=== PATIENT | male | born 1965 | race Caucasian/White ===

== ENCOUNTER → 2017-11-21 | Outpatient (CLI) | payer BC ==
[~2017-11-21] VITALS: Ht 182.9 cm; Wt 90.7 kg
[~2017-11-21] MED LIST: LISI-556 PO; PROP60TA17 PO
== END | disposition home or self-care (01) ==
LOC: PREOP 05:37
PROVIDERS: ATTEND Surgery
DX: Z01.818 Encounter for other preprocedural examination (principal)

== ENCOUNTER 2017-11-28 09:31 | Day surgery (SDC) | payer BC ==
[~2017-11-28] VITALS: Ht 182.9 cm; Wt 90.7 kg
[2017-11-28] MEDS ORDERED: NS IV 500 ML 500 ML IV PRN (09:38)
[2017-11-28] MEDS ORDERED: NS IV 500 ML 500 ML ONE (09:43)
[2017-11-28 09:53] VITALS: BP 135/85
--- NOTE | 2017-11-28 10:02 | History & Physicial ---
History of Present Illness History of Present Illness Reason for visit/HPI to undergo screening colonoscopy Date of Admission 11/28/17 Date Seen by Provider: Nov 28, 2017 Time Seen by Provider: 10:01 I consulted on this patient on 11/28/17 10:01 Attending Physician Alon Goddard MD Admitting Physician Curry Lucero MD Consult Allergies and Home Medications Allergies Coded Allergies: No Known Drug Allergies (Unverified , 11/21/17) Home Medications Lisinopril 5 Mg Tablet, 5 MG PO DAILY, (Reported) Propranolol HCl 60 Mg Tablet, 60 MG PO DAILY, (Reported) Patient Home Medication List Home Medication List Reviewed: Yes Past Ivhfwcl-Nyamqk-Ishqsp Hx Patient Social History Marrital Status: Employed/Student: employed Alcohol Use: Occasionally Uses Recreational Drug Use: No Smoking Status: Never a Smoker Recent Foreign Travel: No Contact w/other who traveled: No Recent Hopitalizations: No Recent Infectious Disease Expo: No Seasonal Allergies Seasonal Allergies: No Surgeries Vasectomy Cardiovascular Yes Hypertension Reproductive System Hx Reproductive Disorders: No Sexually Transmitted Disease: No HIV/AIDS: No Musculoskeletal Degenerate Disk Disease, Arthritis, Chronic Back Pain HEENT Loss of Vision: Bilateral Hearing Impairment: Denies Blood Transfusions Adverse Reaction to a Blood Tr: No (N/A) Constitutional: no symptoms reported EENTM: no symptoms reported Respiratory: no symptoms reported Cardiovascular: no symptoms reported Gastrointestinal: no symptoms reported Genitourinary: no symptoms reported Musculoskeletal: no symptoms reported Skin: no symptoms reported Psychiatric/Neurological: No Symptoms Reported Physical Exam Vital Signs Vital Signs - First Documented 11/28/17 09:53 Temp 99.6 Pulse 60 Resp 16 B/P (MAP) 135/85 (102) Pulse Ox 93 O2 Delivery Room Air Capillary Refill : Height, Weight, BMI Height: 6'0.00" Weight: 200lbs. 0.0oz. 90.843813qa; 27.1 BMI Method: General Appearance: No Apparent Distress Neck: Normal Inspection Respiratory: Lungs Clear Cardiovascular: Regular Rate, Rhythm Gastrointestinal: Non Tender, Soft Rectal: Deferred Neurologic/Psychiatric: Alert, Oriented x3 Skin: Warm/Dry Assessment/Plan Assessment and Plan gentleman to undergo screening colonoscopy. Discussed in detail. Admission Diagnosis Admission Status: Other (Outpt Proc) ALON GODDARD MD Nov 28, 2017 10:02 am
--- NOTE | 2017-11-28 10:02 | Conscious Sedation/ASA ---
Conscious Sedation Pre-Proced Time Reviewed: 10:02 ASA Class: 2 Airway Mallampati Classification: (redding appropriate class) I. II. III, IV Lungs Heart ASA score ASA 1: a normal healthy patient ASA 2: a patient with a mild systemic disease (mid diabetes, controlled hypertension, obesity ASA 3: a patient with a severe systemic disease that limits activity (angina , COPD, prior Myocardial infarction) ASA 4: a patient with an incapacitating disease that is a constant threat to life (CHF, renal failure) ASA 5: a moribund patient not expected to survive 24 hrs. (ruptured aneurysm) ASA 6: a declared brain patient whose organs are being harvested. For emergent operations, add the letter E after the classification Grade 1 Sedation Plan: Discussed options with patient/fam Note The patient is an appropriate candidate to undergo the planned procedure, sedation, and anesthesia. The patient immediately re-assessed prior to indication. ALON GODDARD MD Nov 28, 2017 10:02 am
[2017-11-28] MEDS ORDERED: fentaNYL INJECTION 100 MCG/2 ML AMP ONE ×2 (10:40)
[2017-11-28] MEDS ORDERED: MIDAZOLAM 2 MG/2 ML (VERSED) VIAL ONE ×3 (10:40→10:41)
[2017-11-28] MEDS: fentaNYL INJECTION 100 MCG/2 ML AMP IVP PRN ×3 (10:45→10:55)
[2017-11-28] MEDS: MIDAZOLAM 2 MG/2 ML (VERSED) VIAL IVP PRN ×3 (10:48→10:54)
--- NOTE | 2017-11-28 11:11 | Endo Procedure Record ---
Endo Procedure Report Date of Procedure Last Colonoscopy: No Nov 28, 2017 Surgeon (s) ALON GODDARD MD Post Procedure/Op Diagnosis Sigmoid diverticulosis Procedure Performed Colonoscopy to cecum Description of Procedure Anesthesia Type: Conscious Sedation Specimen(s) collected/removed None Description of the Procedure Indication for the procedure: This gentleman came in for screening colonoscopy. He denies any relevant family history. Informed consent was obtained after reviewing the procedure in detail. Description of the procedure: He was placed in left lateral decubitus position and his vital signs were monitored. Conscious sedation was achieved using Versed and fentanyl. Digital rectal examination was unremarkable. The colonoscope was then introduced into the rectum and advanced all the way up to the cecum. The scope was then withdrawn slowly and the mucosa examined in a systematic fashion. Finding: Sigmoid diverticulosis. He tolerated the procedure well and was taken back to the nursing area in a stable condition. Impression: Screening colonoscopy. No polyps. No family history. Recommend repeat in 10 years. Copy Copies To 1: TC AUSTIN MD, XAVIER M MD Nov 28, 2017 11:11 am
--- NOTE | 2017-11-28 11:12 | Discharge Inst-Simple/Standard ---
Discharge Inst-Standard Discharge Medications New, Converted or Re-Newed RX: Other Patient Instructions/Follow Up Plan of Care/Instructions/FU: Repeat colonoscopy in 10 years Activity as Tolerated: Yes Discharge Diet: No Restrictions ALON GODDARD MD Nov 28, 2017 11:12 am
[2017-11-28 11:45] VITALS: BP 117/74
[2017-11-28 12:05] VITALS: BP 125/69
[2017-11-28 12:10] VITALS: BP 125/69
== END 2017-11-28 12:10 | disposition home or self-care (01) ==
LOC: ENDO 09:31
PROVIDERS: ATTEND Surgery
DX: Z12.11 Encounter for screening for malignant neoplasm of colon (principal); K57.30 Diverticulosis of large intestine without perforation or abscess without bleeding; I10 Essential (primary) hypertension; Z79.899 Other long term (current) drug therapy

== ENCOUNTER 2018-04-20 10:59 | Emergency (ER) | payer BC ==
[~2018-04-20] VITALS: Ht 182.9 cm; Wt 90.7 kg
[2018-04-20] MEDS ORDERED: HYDR-4226 PO (11:40)
--- NOTE | 2018-04-20 11:40 | ED Lower Extremity ---
General Chief Complaint: Lower Extremity Stated Complaint: GROIN PAIN,DIZZINESS Source: patient Exam Limitations: no limitations History of Present Illness Date Seen by Provider: Apr 20, 2018 Time Seen by Provider: 11:35 Initial Comments To ER with reports of right groin pain. He's been having some right groin pain for about a month. He saw Dr. Austin his primary care provider who told him this was likely a muscle strain but could represent a hernia though that was unlikely. Patient denies any bulging in the scrotum. Denies any bowel changes. Today, while playing volleyball he dove for a ball and felt a pop in the right proximal medial right thigh. He's having significant pain with this. He does have a history of right hip replacement. 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 Onset: just prior to arrival Severity: moderate Pain/Injury Location: right leg Method of Injury: sports injury Modifying Factors: Worse With Movement Allergies and Home Medications Allergies Coded Allergies: No Known Drug Allergies (Verified , 11/28/17) Home Medications Hydrocodone/Acetaminophen 1 Each Tablet, 1 EACH PO Q6H PRN for PAIN-MODERATE Prescribed by: ROBBI ISABEL on 04/20/18 1140 Lisinopril 5 Mg Tablet, 5 MG PO DAILY, (Reported) Methylprednisolone 4 Mg Tab.ds.pk, 4 MG PO UD PER DOSE PACK INSTRUCTIONS Prescribed by: ROBBI ISABEL on 04/20/18 1228 Propranolol HCl 60 Mg Tablet, 60 MG PO DAILY, (Reported) Patient Home Medication List Home Medication List Reviewed: Yes Review of Systems Constitutional: see HPI EENTM: see HPI Respiratory: no symptoms reported Cardiovascular: no symptoms reported Genitourinary: no symptoms reported Musculoskeletal: see HPI Skin: no symptoms reported Psychiatric/Neurological: No Symptoms Reported Past Aqpvpsz-Lagfgr-Jsyoax Hx Patient Social History Recent Foreign Travel: No Contact w/Someone Who Travel: No Recent Hopitalizations: No Seasonal Allergies Seasonal Allergies: No Past Medical History Vasectomy Cardiac: Yes Hypertension Reproductive Disorders: No Sexually Transmitted Disease: No HIV/AIDS: No Degenerate Disk Disease, Arthritis, Chronic Back Pain Loss of Vision: Bilateral Hearing Impairment: Denies Adverse Reaction/Blood Tranf: No (N/A) Physical Exam Vital Signs Capillary Refill : Height, Weight, BMI Height: 6'0.00" Weight: 200lbs. 0.0oz. 90.006197nd; 27.1 BMI Method: General Appearance: WD/WN, no apparent distress HEENT: PERRL/EOMI, normal ENT inspection Neck: non-tender, full range of motion Respiratory: no respiratory distress, no accessory muscle use Gastrointestinal: normal bowel sounds, non tender, soft Hips: bilateral hip non-tender, bilateral hip normal inspection, bilateral hip normal range of motion Legs: bilateral leg non-tender, bilateral leg normal inspection, bilateral leg normal range of motion Knees: bilateral knee non-tender, bilateral knee normal inspection, bilateral knee normal range of motion Ankles: bilateral ankle non-tender, bilateral ankle normal inspection, bilateral ankle normal range of motion Neurologic/Psychiatric: alert, normal mood/affect, oriented x 3 Skin: normal color, warm/dry Abdomen is flat soft and nontender. There is no bulging in the scrotum to suggest inguinal hernia. His pain is to the medial right thigh. Progress/Results/Core Measures Results/Orders My Orders Orders - ROBBI ISABEL APRN Ct Abdomen/Pelvis Wo (04/20/18 11:35) Hydrocodone/Apap 5/325 Tablet (Lortab 5 (04/20/18 11:45) Medications Given in ED Current Medications Medications Dose Ordered Sig/Neeru Route Start Time Stop Time Status Last Admin Dose Admin Acetaminophen/ Hydrocodone Bitart 1 tab ONCE ONCE PO 04/20/18 11:45 04/20/18 11:46 DC 04/20/18 12:11 1 TAB Diagnostic Imaging Diagonstic Imaging: CT Comments NAME: COURTNEY LEE [facility] REC#: [id number] PT STATUS: REG ER : 1965 PHYSICIAN: ROBBI ISABEL APRN ADMIT DATE: 04/20/18/ER Draft Date of Exam:04/20/18 CT ABDOMEN/PELVIS WO PROCEDURE: CT abdomen and pelvis without contrast. TECHNIQUE: Multiple contiguous axial images were obtained through the abdomen and pelvis without the use of intravenous contrast. INDICATION: Injury with groin pain and dizziness. No prior studies are available for comparison. FINDINGS: The lung bases are clear. Liver and gallbladder are unremarkable. The pancreas and spleen are unremarkable. No adrenal mass is identified. Kidneys are without calculi or hydronephrosis. The aorta is non-aneurysmal. Small and large bowel loops are normal caliber. There is mild diverticulosis of the sigmoid but no evidence of acute diverticulitis. Bladder is unremarkable. There is moderate streak artifact through the pelvis from patient's right hip prosthesis. Bony structures are nonacute. There is no free fluid identified. There is a small fat-containing umbilical hernia. IMPRESSION: Unremarkable noncontrast CT of the abdomen and pelvis apart from uncomplicated diverticulosis. No acute abnormality is identified. Dictated on workstation # [id number] Dict: 04/20/18 1214 Trans: 04/20/18 1222 [id number] Interpreted by: MAXIMILIANO DENSON MD Electronically signed by: Departure Impression Primary Impression: Strain of hip adductor muscle Qualified Codes: S76.011A - Strain of muscle, fascia and tendon of right hip, initial encounter Additional Impression: Adductor tendinitis of hip Disposition: HOME, SELF-CARE Condition: Stable Departure-Patient Inst. Decision time for Depature: 11:39 Referrals: TC AUSTIN MD (PCP/Family) Primary Care Physician Patient Instructions: Lower Extremity Muscle Strain Add. Discharge Instructions: 1. Ice to this area 2. Pain medication as as directed. 3. Follow-up with Dr. Austin next week All discharge instructions reviewed with patient and/or family. Voiced understanding. Scripts Methylprednisolone (Medrol) 4 Mg Tab.ds.pk 4 MG PO UD for 6 Days, #21 PKG PER DOSE PACK INSTRUCTIONS Prov: ROBBI ISABEL APRN 04/20/18 Hydrocodone/Acetaminophen (Allen 5-325 Tablet) 1 Each Tablet 1 EACH PO Q6H PRN for PAIN-MODERATE MDD 10, #10 TAB Prov: ROBBI ISABEL APRN 04/20/18 Work/School Note: Work Release Form Date Seen in the Emergency Department: Apr 20, 2018 Return to Work: Apr 22, 2018 Images Torso/Trunk 1 - Tenderness Copy Copies To 1: TC AUSTIN MD, PETER J APRN Apr 20, 2018 11:40
[2018-04-20] MEDS: HYDROcodone/APAP 5 MG/325 MG (LORTAB) TAB PO ONE (12:11)
--- NOTE | 2018-04-20 12:22 | Diagnostic Imaging Report ---
PROCEDURE: CT abdomen and pelvis without contrast. TECHNIQUE: Multiple contiguous axial images were obtained through the abdomen and pelvis without the use of intravenous contrast. INDICATION: Injury with groin pain and dizziness. No prior studies are available for comparison. FINDINGS: The lung bases are clear. Liver and gallbladder are unremarkable. The pancreas and spleen are unremarkable. No adrenal mass is identified. Kidneys are without calculi or hydronephrosis. The aorta is non-aneurysmal. Small and large bowel loops are normal caliber. There is mild diverticulosis of the sigmoid but no evidence of acute diverticulitis. Bladder is unremarkable. There is moderate streak artifact through the pelvis from patient's right hip prosthesis. Bony structures are nonacute. There is no free fluid identified. There is a small fat-containing umbilical hernia. IMPRESSION: Unremarkable noncontrast CT of the abdomen and pelvis apart from uncomplicated diverticulosis. No acute abnormality is identified. Dictated by: Dictated on workstation # [id number]
[2018-04-20] MEDS ORDERED: METH4TAB PO (12:28)
[2018-04-20 12:40] VITALS: BP 126/76
== END 2018-04-20 12:40 | disposition home or self-care (01) ==
LOC: EDUNIT# 10:59 → ER 11:01
DX: S76.011A Strain of muscle, fascia and tendon of right hip, initial encounter (principal); M76.01 Gluteal tendinitis, right hip; I10 Essential (primary) hypertension; Z96.641 Presence of right artificial hip joint; X50.1XXA Overexertion from prolonged static or awkward postures, initial encounter; Y93.68 Activity, volleyball (beach) (court)
CPT/HCPCS: 74176

== ENCOUNTER 2019-05-04 16:24 | Emergency (ER) | payer BC ==
[~2019-05-04] VITALS: Ht 180 cm; Wt 91.5 kg
[~2019-05-04 16:24] MED LIST changes: +HYDR-4226 PO; +METH4TAB PO
[2019-05-04] MEDS ORDERED: TADA5TAB13 (16:34)
[2019-05-04] MEDS ORDERED: NS IV 1000 ML 1,000 ML ONE (16:54)
[2019-05-04] MEDS ORDERED: cloNIDine 0.1 MG (CATAPRES) TAB ONE (16:54)
[2019-05-04] MEDS ORDERED: cloNIDine 0.1 MG (CATAPRES) TAB PO ONE (17:15)
[2019-05-04] MEDS ORDERED: cloNIDine 0.2 MG (CATAPRES) TAB PO ONE (17:15)
[2019-05-04 17:19] LABS: BASOPHILS % (AUTO) 0 % (0-10); EOSINOPHILS # (AUTO) 0.1 10^3/uL (0.0-0.3); EOSINOPHILS % (AUTO) 2 % (0-10); HEMATOCRIT 43 % (40-54); HEMOGLOBIN 14.7 G/DL (13.3-17.7); LYMPHOCYTES # (AUTO) 1.2 X 10^3 (1.0-4.0); LYMPHOCYTES % (AUTO) 23 % (12-44); MEAN CORPUSCULAR HEMOGLOBIN 31 PG (25-34); MEAN CORPUSCULAR HGB CONC 34 G/DL (32-36); MEAN CORPUSCULAR VOLUME 92 FL (80-99); MEAN PLATELET VOLUME 9.6 FL (7.4-10.4); MONOCYTES # (AUTO) 0.5 X 10^3 (0.0-1.0); MONOCYTES % (AUTO) 10 % (0-12); NEUTROPHILS # (AUTO) 3.4 X 10^3 (1.8-7.8); NEUTROPHILS % (AUTO) 66 % (42-75); PLATELET COUNT 240 10^3/uL (130-400); RED CELL DISTRIBUTION WIDTH 12.4 % (10.0-14.5); WHITE BLOOD COUNT 5.1 10^3/uL (4.3-11.0)
--- NOTE | 2019-05-04 17:19 | ED General ---
General Chief Complaint: Cardiac/General Problems Stated Complaint: HIGH BP Nursing Triage Note: WENT TO THE CLINIC TODAY DUE TO TUNNEL VISION AND BEING LIGHT HEADED. SENT OVER FROM THERE FOR HYPERTENSION. STATES HE IS NO LONGER HAVING THE TUNNEL VISION ET JUST FEELS "WEIRD" Nursing Sepsis Screen: No Definite Risk Source of Information: Patient, Family, Other (urgent care) Exam Limitations: No Limitations History of Present Illness Date Seen by Provider: May 04, 2019 Time Seen by Provider: 17:15 Initial Comments This 53-year-old white male presents after a near syncopal episode today with a history of having elevated blood pressure at urgent care. The patient denied headache photophobia or stiff neck, chest pain palpitations or diaphoresis, shortness of breath, nausea vomiting or diarrhea, or change in medication. 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 The patient stated that he had a regular cold drink last night. He has been under some stress from his mother one year ago and his father having been recently hospitalized. Allergies and Home Medications Allergies Coded Allergies: No Known Drug Allergies (Verified , 11/28/17) Home Medications Lisinopril 5 Mg Tablet, 5 MG PO DAILY, (Reported) Propranolol HCl 60 Mg Tablet, 60 MG PO DAILY, (Reported) Patient Home Medication List Home Medication List Reviewed: Yes Review of Systems Review of Systems Constitutional: malaise Respiratory: No cough Cardiovascular: No chest pain, No palpitations Gastrointestinal: No abdominal pain, No diarrhea, No nausea, No vomiting Genitourinary: no symptoms reported Musculoskeletal: no symptoms reported Skin: no symptoms reported Psychiatric/Neurological: No Symptoms Reported Hematologic/Lymphatic: No Symptoms Reported Immunological/Allergic: no symptoms reported Past Ogmubul-Gwpbqa-Ggdwhv Hx Past Med/Social Hx: Reviewed Nursing Past Med/Soc Hx Patient Social History Alcohol Use: Regular Use Alcohol Beverage of Choice: Whiskey Recreational Drug Use: No Smoking Status: Current Someday Smoker Type Used: Cigars 2nd Hand Smoke Exposure: No Recent Foreign Travel: No Contact w/Someone Who Travel: No Recent Infectious Disease Expo: No Recent Hopitalizations: No Seasonal Allergies Seasonal Allergies: No Past Medical History Surgeries: Yes (R THR, KNEE SCOPE, RT HIP REPLACEMENT ) Vasectomy Respiratory: No Cardiac: Yes Hypertension Neurological: No (TREMORS) Reproductive Disorders: No Sexually Transmitted Disease: No HIV/AIDS: No Gastrointestinal: No Musculoskeletal: Yes Degenerate Disk Disease, Arthritis, Chronic Back Pain Endocrine: No Loss of Vision: Bilateral Hearing Impairment: Denies Cancer: No Psychosocial: No Integumentary: No Blood Disorders: No Adverse Reaction/Blood Tranf: No (N/A) Physical Exam Vital Signs Vital Signs - First Documented 05/04/19 16:29 Temp 37.0 Pulse 67 Resp 16 B/P (MAP) 206/130 (155) Pulse Ox 98 O2 Delivery Room Air Capillary Refill : Less Than 3 Seconds Height, Weight, BMI Height: 6'0" Weight: 200lbs. 0.0oz. 90.196731va; 28.00 BMI Method:Stated General Appearance: No Apparent Distress, WD/WN Eyes: Bilateral Eye Normal Inspection HEENT: Normal ENT Inspection Neck: Normal Inspection Respiratory: Lungs Clear Cardiovascular: Regular Rate, Rhythm Gastrointestinal: Normal Bowel Sounds, Non Tender, Soft Back: Normal Inspection Extremity: Normal Inspection Neurologic/Psychiatric: Alert, Oriented x3, No Motor/Sensory Deficits Skin: Normal Color, Warm/Dry Progress/Results/Core Measures Suspected Sepsis Recent Fever Within 48 Hours: No Infection Criteria Present: None New/Unexplained Altered Menta: No Sepsis Screen: No Definite Risk SIRS Temperature: Pulse: 67 Respiratory Rate: 16 Laboratory Tests 05/04/19 16:55: White Blood Count 5.1 Blood Pressure 206 /130 Mean: 155 Laboratory Tests 05/04/19 16:55: Creatinine 1.00, Platelet Count 240, Total Bilirubin 0.4 Results/Orders Lab Results Laboratory Tests Test 05/04/19 16:55 Range/Units White Blood Count 5.1 4.3-11.0 10^3/uL Red Blood Count 4.69 4.35-5.85 10^6/uL Hemoglobin 14.7 13.3-17.7 G/DL Hematocrit 43 40-54 % Mean Corpuscular Volume 92 80-99 FL Mean Corpuscular Hemoglobin 31 25-34 PG Mean Corpuscular Hemoglobin Concent 34 32-36 G/DL Red Cell Distribution Width 12.4 10.0-14.5 % Platelet Count 240 130-400 10^3/uL Mean Platelet Volume 9.6 7.4-10.4 FL Neutrophils (%) (Auto) 66 42-75 % Lymphocytes (%) (Auto) 23 12-44 % Monocytes (%) (Auto) 10 0-12 % Eosinophils (%) (Auto) 2 0-10 % Basophils (%) (Auto) 0 0-10 % Neutrophils # (Auto) 3.4 1.8-7.8 X 10^3 Lymphocytes # (Auto) 1.2 1.0-4.0 X 10^3 Monocytes # (Auto) 0.5 0.0-1.0 X 10^3 Eosinophils # (Auto) 0.1 0.0-0.3 10^3/uL Basophils # (Auto) 0.0 0.0-0.1 10^3/uL Sodium Level 142 135-145 MMOL/L Potassium Level 4.2 3.6-5.0 MMOL/L Chloride Level 108 H 98-107 MMOL/L Carbon Dioxide Level 23 21-32 MMOL/L Anion Gap 11 5-14 MMOL/L Blood Urea Nitrogen 21 H 7-18 MG/DL Creatinine 1.00 0.60-1.30 MG/DL Estimat Glomerular Filtration Rate > 60 BUN/Creatinine Ratio 21 Glucose Level 101 70-105 MG/DL Calcium Level 9.2 8.5-10.1 MG/DL Corrected Calcium 9.0 8.5-10.1 MG/DL Magnesium Level 2.0 1.6-2.4 MG/DL Total Bilirubin 0.4 0.1-1.0 MG/DL Aspartate Amino Transf (AST/SGOT) 31 5-34 U/L Alanine Aminotransferase (ALT/SGPT) 33 0-55 U/L Alkaline Phosphatase 62 40-136 U/L Total Protein 7.2 6.4-8.2 GM/DL Albumin 4.2 3.2-4.5 GM/DL My Orders Orders - MARZENA GONZALEZ MD Ns Iv 1000 Ml (Sodium Chloride 0.9%) (05/04/19 16:54) Clonidine Tablet (Catapres Tablet) (05/04/19 16:54) Clonidine Tablet (Catapres Tablet) (05/04/19 17:15) Clonidine Tablet (Catapres Tablet) (05/04/19 17:15) Cbc With Automated Diff (05/04/19 17:12) Magnesium (05/04/19 17:12) Chest 1 View, Ap/Pa Only (05/04/19 17:12) Ekg Tracing (05/04/19 17:12) Comprehensive Metabolic Panel (05/04/19 17:12) Myoglobin Serum (05/04/19 17:12) Protime With Inr (05/04/19 17:12) Partial Thromboplastin Time (05/04/19 17:12) O2 (05/04/19 17:12) Monitor-Rhythm Ecg Trace Only (05/04/19 17:12) Lipid Panel (05/05/19 06:00) Ed Iv/Invasive Line Start (05/04/19 17:12) Troponin I (05/04/19 17:12) Hemoglobin A1c (05/04/19 17:12) Lorazepam Injection (Ativan Injection) (05/04/19 17:30) Medications Given in ED Current Medications Medications Dose Ordered Sig/Neeru Route Start Time Stop Time Status Last Admin Dose Admin Clonidine HCl 0.1 mg ONCE ONCE PO 05/04/19 17:15 05/04/19 17:16 DC 05/04/19 17:27 0.1 MG Clonidine HCl 0.2 mg ONCE ONCE PO 05/04/19 17:15 05/04/19 17:16 DC 05/04/19 17:26 0.2 MG Lorazepam 1 mg ONCE ONCE IVP 05/04/19 17:30 05/04/19 17:31 DC 05/04/19 17:26 1 MG Sodium Chloride 1,000 ml @ ud STK-MED ONCE .ROUTE 05/04/19 16:54 05/04/19 16:57 DC 05/04/19 17:27 1,000 MLS/HR Vital Signs/I&O 05/04/19 16:29 Temp 37.0 Pulse 67 Resp 16 B/P (MAP) 206/130 (155) Pulse Ox 98 O2 Delivery Room Air Capillary Refill : Less Than 3 Seconds Blood Pressure Mean: 155 Progress Note : Time: 17:40 Progress Note Patient's EKG demonstrated sinus rhythm no acute cranial injury was noted. Patient's blood pressure was controlled with clonidine. Patient received a total of 0.3 mg orally. Patient also received a milligram of Ativan IV. Time of discharge patient's blood pressure was normalized. He was asked Lionel to assume his normal antihypertensive therapy and follow-up closely with his doctor on Tuesday for further evaluation. He was invited return if any further problems or questions. Departure Impression Primary Impression: Elevated blood pressure reading Disposition: HOME, SELF-CARE Condition: Improved Departure-Patient Inst. Decision time for Depature: 17:42 Referrals: NO,LOCAL PHYSICIAN (PCP) Primary Care Physician Patient Instructions: Blood Pressure Testing and Measurement Add. Discharge Instructions: Resume your blood pressure medications. Follow-up with her doctor on Tuesday for further evaluation. Return of any problems or questions. All discharge instructions reviewed with patient and/or family. Voiced understanding. MARZENA GONZALEZ MD May 04, 2019 17:19
[2019-05-04] MEDS ORDERED: LORazepam INJ 2 MG/ML (ATIVAN) VIAL IVP ONE (17:30)
[2019-05-04 17:34] LABS: ALANINE AMINOTRANSFERASE 33 U/L (0-55); ALBUMIN 4.2 GM/DL (3.2-4.5); ALKALINE PHOSPHATASE 62 U/L (40-136); BILIRUBIN,TOTAL 0.4 MG/DL (0.1-1.0); BUN/CREATININE RATIO 21; CALCIUM 9.2 MG/DL (8.5-10.1); CARBON DIOXIDE 23 MMOL/L (21-32); CHLORIDE 108 MMOL/L (98-107); GFR ESTIMATED > 60; GLUCOSE 101 MG/DL (70-105); POTASSIUM 4.2 MMOL/L (3.6-5.0); SODIUM 142 MMOL/L (135-145); TOTAL PROTEIN 7.2 GM/DL (6.4-8.2)
--- NOTE | 2019-05-04 17:55 | Diagnostic Imaging Report ---
INDICATION: Lightheadedness, hypertension, and headache. Upright portable AP view of chest is obtained. COMPARISON: No previous study is available for comparison at this time. FINDINGS: Heart size and pulmonary vasculature are within normal limits, and the lungs are clear, bilaterally. IMPRESSION: Unremarkable chest. Dictated by: Dictated on workstation # [id number]
[2019-05-04 17:58] VITALS: BP 157/103
[2019-05-04 18:20] LABS: INR 0.9 (0.8-1.4); PROTHROMBIN TIME PATIENT 12.7 SEC (12.2-14.7)
== END 2019-05-04 17:59 | disposition home or self-care (01) ==
LOC: EDUNIT# 16:24 → ER 16:25
DX: I10 Essential (primary) hypertension (principal); F17.290 Nicotine dependence, other tobacco product, uncomplicated; Z96.641 Presence of right artificial hip joint
CPT/HCPCS: 36415; 71045; 80053; 83036; 83735; 83874; 84484; 85025; 85610; 85730; 93005; 93041; 96361; 96374

== ENCOUNTER → 2022-03-16 | Outpatient (CLI) | payer BC ==
[~2022-03-16] MED LIST changes: -LISI-556 PO; +LISI5TAB20 PO; +TADA5TAB13
[2022-03-16 16:48] LABS: HEMATOCRIT 43 % (40-54); HEMOGLOBIN 14.5 g/dL (13.3-17.7); MEAN CORPUSCULAR HEMOGLOBIN 32 pg (25-34); MEAN CORPUSCULAR HGB CONC 34 g/dL (32-36); MEAN CORPUSCULAR VOLUME 95 fL (80-99); MEAN PLATELET VOLUME 9.7 fL (9.0-12.2); PLATELET COUNT 219 10^3/uL (130-400)
[2022-03-16 16:53] LABS: ALBUMIN 4.1 GM/DL (3.2-4.5); POTASSIUM 3.9 MMOL/L (3.6-5.0)
[2022-03-16 16:54] LABS: CALCIUM 9.6 MG/DL (8.5-10.1)
[2022-03-16 16:56] LABS: TOTAL PROTEIN 7.3 GM/DL (6.4-8.2)
[2022-03-16 16:57] LABS: BILIRUBIN,TOTAL 0.5 MG/DL (0.1-1.0)
[2022-03-16 16:59] LABS: CREATININE SERUM 0.96 MG/DL (0.60-1.30)
== END ==
LOC: LAB 16:07
PROVIDERS: ATTEND Registered Nurse Critical Care Medicine
DX: I10 Essential (primary) hypertension (principal); M79.605 Pain in left leg; M79.89 Other specified soft tissue disorders; R25.1 Tremor, unspecified
CPT/HCPCS: 36415; 80053; 85027; 85379

== ENCOUNTER → 2022-03-22 | Outpatient (CLI) | payer BC ==
--- NOTE | 2022-03-22 08:36 | Diagnostic Imaging Report ---
INDICATION: PAIN IN LEFT LEG TECHNIQUE: Multiple real-time grayscale images were obtained over the left lower extremity in various projections, bilaterally. Additional duplex Doppler and color Doppler images were also obtained. CORRELATION STUDY: None FINDINGS: Color and grayscale sonographic images demonstrate no intraluminal defect within the visualized portion of the common femoral, superficial femoral and/or popliteal veins to suggest thrombus formation. These vessels demonstrate normal response to compression and augmentation. No soft tissue fluid collection. IMPRESSION: 1. Negative for deep venous thrombosis of the left leg. Dictated by: Dictated on workstation # [id number]
== END ==
LOC: RAD 08:00
PROVIDERS: ATTEND Registered Nurse Critical Care Medicine
DX: L03.116 Cellulitis of left lower limb (principal); S80.811A Abrasion, right lower leg, initial encounter; I10 Essential (primary) hypertension; Y92.094 Garage of other non-institutional residence as the place of occurrence of the external cause; R25.1 Tremor, unspecified